=== PATIENT | male | born 1930 | race Caucasian/White ===

== ENCOUNTER 2017-04-03 14:46 | Emergency (ER) | payer MEDICARE, OTHER ==
--- NOTE | 2017-04-03 16:14 | ER Document Report ---
ED Medical Screen (RME) - General Chief Complaint: Abdominal Pain Stated Complaint: ABDOMINAL PAIN Time Seen by Provider: 04/03/17 16:13 Mode of Arrival: Ambulatory Information source: Patient Notes: 86 yo male with RLQ abdomen pain, sudden onset, vomiting relieves the pain, 3 episodes of this since yesterday. No groin or testicle pain. Hot this morning. Chronic diarrhea. No kidney hx. PMH: A FIB, gout,hyperlipedemia, no abdominal surgeries. No pain now, slightly hurt when touched RLQ. - Related Data Allergies/Adverse Reactions: No Known Allergies Allergy (Unverified 04/03/17 14:48) Physical Exam - Vital signs Vitals: Temp Pulse Resp BP Pulse Ox 97.7 F 68 20 143/81 H 97 04/03/17 14:57 04/03/17 14:57 04/03/17 14:57 04/03/17 14:57 04/03/17 14:57 Course - Vital Signs Vital signs: Temp Pulse Resp BP Pulse Ox 97.7 F 68 20 143/81 H 97 04/03/17 14:57 04/03/17 14:57 04/03/17 14:57 04/03/17 14:57 04/03/17 14:57
[2017-04-03 17:17] LABS: ABSOLUTE MONOCYTES (AUTO) 0.5 10^3/uL (0.1-1.4); ABSOLUTE NEUT (AUTO) 6.4 10^3/uL (1.7-8.2); BASOPHILS % (AUTO) 0.6 % (0-2); EOSINOPHILS % (AUTO) 0.1 % (0-6); HEMATOCRIT 41.5 % (37.9-51.0); LYMPHOCYTES % (AUTO) 22.1 % (13-45); MEAN CORPUSCULAR HEMOGLOBIN 31.3 pg (27.0-33.4); MEAN CORPUSCULAR HGB CONC 33.6 g/dL (32.0-36.0); MEAN CORPUSCULAR VOLUME 93 fl (80-97); MONOCYTES % (AUTO) 5.7 % (3-13); PLATELET COUNT 257 10^3/uL (150-450); RED BLOOD COUNT 4.47 10^6/uL (4.35-5.55); RED CELL DISTRIBUTION WIDTH 14.5 % (11.5-14.0); SEGMENTED NEUTROPHILS % (AUTO) 71.5 % (42-78); TOTAL CELLS COUNTED % (AUTO) 100 %
[2017-04-03 17:24] LABS: INTERNATIONAL RATION (INR) 1.07; PARTIAL THROMBOPLASTIN TIME 32.7 SEC (23.5-35.8); PROTHROMBIN TIME 14.6 SEC (11.4-15.4)
[2017-04-03 17:35] LABS: APPEARANCE,URINE CLOUDY; BILIRUBIN,URINE NEGATIVE (NEGATIVE); GLUCOSE, URINE NEGATIVE (NEGATIVE); KETONES,URINE NEGATIVE (NEGATIVE); LEUKOCYTE ESTERASE,URINE NEGATIVE (NEGATIVE); NITRITE,URINE NEGATIVE (NEGATIVE); PROTEIN,URINE 100 mg/dL (NEGATIVE); UROBILINOGEN,URINE NEGATIVE mg/dL (<2.0)
[2017-04-03 17:36] LABS: COLOR,URINE BROWN
--- NOTE | 2017-04-03 17:38 | RADIOLOGY REPORT (SQ) ---
EXAM DESCRIPTION: CT LTD RENAL STONE PROTOCOL ON COMPLETED DATE/TIME: 04/03/2017 5:20 pm REASON FOR STUDY: rlq pain, gross hematuria COMPARISON: None. TECHNIQUE: CT scan of the abdomen and pelvis performed without intravenous or oral contrast. Images reviewed with lung, soft tissue, and bone windows. Reconstructed coronal and sagittal MPR images revi ewed. All images stored on PACS. All CT scanners at this facility use dose modulation, iterative reconstruction, and/or weight based d osing when appropriate to reduce radiation dose to as low as reasonably achievable (ALARA). [facility]: Dose Right [facility]: CareDose [facility]: Dose Right [facility]: Teradose 4D [facility]: Smart [employer] RADIATION DOSE: CT Rad equipment meets quality standard of care and radiation dose reduction techniq ues were employed. CTDIvol: 8.8 mGy. DLP: 504 mGy-cm.mGy. LIMITATIONS: None. FINDINGS: LOWER CHEST: A pleural-based density is identified in the right lower hemithorax posterior ly measuring 1.6 x 1.2 cm in diameters which may only represent pleural and parenchymal scarring rivas gladis the possibility of a pleural base mass cannot be excluded. NON-CONTRASTED LIVER, SPLEEN, ADRENALS: Evaluation limited by lack of IV contrast. No identified sign ificant masses. There is some prominence of the adrenal glands bilaterally which are of relative low density which would suggest a benign etiology. Small adrenal calcification is identified on the lef t. PANCREAS: No masses. No peripancreatic inflammatory changes. GALLBLADDER: No identified stones by CT criteria. No inflammatory changes to suggest cholecystitis. RIGHT KIDNEY AND URETER: No suspicious masses. Assessment limited by lack of IV contrast. No renal calculi are identified. An obstructing 3.5 mm in diameter calculus is identified in the mid right ur eter best seen on image number 52 of the axial series 3. There is hydronephrosis of the right kidne y and fullness of the right ureter proximal to this level. LEFT KIDNEY AND URETER: No suspicious masses. Assessment limited by lack of IV contrast. And 1.3 cm in diameter relative low density area is identified in the left kidney with CT numbers most consisten t with a small cortical cyst. No significant calcifications. No hydronephrosis or hydroureter. AORTA AND RETROPERITONEUM: A small infrarenal abdominal aortic aneurysm is identified measuring 3.2 x 3.1 cm in diameters. No retroperitoneal masses or adenopathy. BOWEL AND PERITONEAL CAVITY: No obvious masses or inflammatory changes. No free fluid. APPENDIX: Normal. PELVIS, BLADDER, AND ABDOMINAL WALL:No abnormal masses. No free fluid. Bladder normal. BONES: Degenerative changes are identified in the lower lumbar spine with almost complete loss of the L4-L5 disc space height and associated osteophytic lipping OTHER: No other significant finding. IMPRESSION: Obstructing 3.5 mm in diameter calculus in the mid right ureter. Small 3.2 x 3.1 cm in diameter infrarenal abdominal aortic aneurysm. Other findings as noted above COMMENT: Quality ID # [id number]: Final reports with documentation of one or more dose reduction techniques (e.g., Automated exposure control, adjustment of the mA and/or kV according to patient size, use of iterative reconstruction technique) TECHNICAL DOCUMENTATION: JOB ID: [id number] [employer]- All Rights Reserved
[2017-04-03 17:43] LABS: ALANINE AMINOTRANSFERASE 33 U/L (21-72); ALBUMIN 4.5 g/dL (3.5-5.0); ALKALINE PHOSPHATASE 70 U/L (38-126); ANION GAP 12 (5-19); ASPARTATE AMINO TRANSFERASE 26 U/L (17-59); BILIRUBIN,DIRECT 0.2 mg/dL (0.0-0.4); BILIRUBIN,TOTAL 1.1 mg/dL (0.2-1.3); BLOOD UREA NITROGEN 18 mg/dL (7-20); CALCIUM 10.1 mg/dL (8.4-10.2); CARBON DIOXIDE 32 mmol/L (22-30); CHLORIDE 101 mmol/L (98-107); GLUCOSE 136 mg/dL (75-110); POTASSIUM 4.6 mmol/L (3.6-5.0); SODIUM 145.2 mmol/L (137-145); TOTAL PROTEIN 7.4 g/dL (6.3-8.2)
[2017-04-03] MEDS ORDERED: CEFTRIAXONE 1 GM/D5W RTU 50 ML IV ONE (18:17)
[2017-04-03] MEDS ORDERED: MORPHINE SULFATE 10 MG/ML INJ IV ONE (18:18)
[2017-04-03] MEDS ORDERED: ONDANSETRON 4 MG TAB.RAPDIS PO ONE (18:18)
[2017-04-03] MEDS ORDERED: CEFTRIAXONE SODIUM 1,000 MG in DEXTROSE 5%-WATER 50 ML IV ONE (19:30)
[2017-04-03] MEDS ORDERED: TAMSULOSIN HCL 0.4 MG CAP.SR.24H PO ONE (19:49)
[2017-04-03] MEDS ORDERED: KETOROLAC TROMETHAMINE INJ/PF 30 MG/1 ML SDV IV ONE (19:49)
--- NOTE | 2017-04-03 19:49 | ER Document Report ---
ED General - General Chief Complaint: Abdominal Pain Stated Complaint: ABDOMINAL PAIN Time Seen by Provider: 04/03/17 16:13 Mode of Arrival: Ambulatory - [facility] Patient complains to provider of: Abdominal pain Onset: Yesterday Onset/Duration: Sudden, Gone Quality of pain: Stabbing Severity: Severe Context: States last night around midnight he developed his right sharp unrelenting pain just above his right testicle area. He states he did have vomiting with it. He states he did fall asleep it did resolve for a little bit. He awoke today and the pain was back. Patient has never had this pain before. Associated symptoms: Nausea, Vomiting Exacerbated by: Denies Relieved by: Denies Similar symptoms previously: No Recently seen / treated by doctor: No - Related Data Allergies/Adverse Reactions: No Known Allergies Allergy (Unverified 04/03/17 14:48) Past Medical History - General Information source: Patient - Social History Smoking Status: Never Smoker Chew tobacco use (# tins/day): No Frequency of alcohol use: None Drug Abuse: None Lives with: Family Family History: Reviewed & Not Pertinent Patient has suicidal ideation: No Patient has homicidal ideation: No - Past Medical History Cardiac Medical History: Reports: Hx Heart Attack Pulmonary Medical History: Reports: None EENT Medical History: Reports: None Other: Patient is blind in his left eye. A few years ago he was working and the nail went into it. Neurological Medical History: Reports: None Endocrine Medical History: Reports: None Renal/ Medical History: Reports: None, Other - Hematuria this morning. Denies : Hx Kidney Stones, Hx Peritoneal Dialysis Malignancy Medical History: Reports None GI Medical History: Reports: None Musculoskeltal Medical History: Reports None Skin Medical History: Reports None Psychiatric Medical History: Reports: None Review of Systems - Review of Systems Constitutional: No symptoms reported EENT: No symptoms reported Cardiovascular: No symptoms reported Respiratory: No symptoms reported Gastrointestinal: Nausea, Vomiting Genitourinary: Hematuria Male Genitourinary: Testicular pain - On the right with the associated pain but has resolved now Musculoskeletal: No symptoms reported Skin: No symptoms reported Hematologic/Lymphatic: No symptoms reported Neurological/Psychological: No symptoms reported Physical Exam - Vital signs Vitals: Temp Pulse Resp BP Pulse Ox 97.7 F 68 20 143/81 H 97 04/03/17 14:57 04/03/17 14:57 04/03/17 14:57 04/03/17 14:57 04/03/17 14:57 Notes: PHYSICAL EXAMINATION: GENERAL: Well-appearing, well-nourished and in no acute distress. HEAD: Atraumatic, normocephalic. EYES: Pupils round reactive to light, left cornea are cloudy patient blind in that eye. extraocular movements intact, sclera anicteric, conjunctiva are normal. ENT: Nares patent, oropharynx clear without exudates. Moist mucous membranes. NECK: Normal range of motion, supple without lymphadenopathy LUNGS: Breath sounds clear to auscultation bilaterally and equal. No wheezes rales or rhonchi. HEART: Regular rate and rhythm without murmurs ABDOMEN: Soft, nontender, nondistended abdomen. No guarding, no rebound. No masses appreciated. Musculoskeletal: Normal range of motion, no pitting or edema. No cyanosis. NEUROLOGICAL: Cranial nerves grossly intact. Normal speech, normal gait. Normal sensory, motor exams PSYCH: Normal mood, normal affect. SKIN: Warm, Dry, normal turgor, no rashes or lesions noted. Course - Re-evaluation Re-evalutation: 04/03/17 19:54 I did go and talk to the patient regarding his kidney stone as well as the CT finding of a possible entity on his right base of his lung. He states that he knows that is there and his nursing informatics analyst has told him it could calcify. I did give him a copy of the CT of his chest that he can bring to his primary medical doctor Dr. Nuno. (he just switched doctor's) 04/03/17 20:09 Patient remained stable throughout his stay in the emergency department. I did discuss with him the discharge plan including [place] and Flomax. Patient did go home with a copy of the CAT scan of his chest and he is to follow-up with his new primary medical doctor Dr. Godinez to further evaluate that. Patient does state he sees a nursing informatics analyst and they are aware of this finding. Patient is to return to the emergency department if he has high fevers inability to urinate intractable pain or any other concerns. Patient left here in the care of his in stable condition. - Vital Signs Vital signs: Temp Pulse Resp BP Pulse Ox 97.6 F 66 14 145/85 H 98 04/03/17 19:43 04/03/17 19:43 04/03/17 19:43 04/03/17 19:43 04/03/17 19:43 - Laboratory Result Diagrams: 04/03/17 17:03 04/03/17 17:03 Laboratory results interpreted by me: 04/03/17 04/03/17 04/03/17 16:44 17:03 17:03 RDW 14.5 H Sodium 145.2 H Carbon Dioxide 32 H Glucose 136 H Urine Protein 100 H Urine Blood LARGE H Urine Ascorbic Acid 40 H - Diagnostic Test Radiology reviewed: Image reviewed, Reports reviewed Radiology results interpreted by me: 04/03/17 20:09 EXAM DESCRIPTION: CT LTD RENAL STONE PROTOCOL ON COMPLETED DATE/TIME: 04/03/2017 5:20 pm REASON FOR STUDY: rlq pain, gross hematuria COMPARISON: None. TECHNIQUE: CT scan of the abdomen and pelvis performed without intravenous or oral contrast. Images reviewed with lung, soft tissue, and bone windows. Reconstructed coronal and sagittal MPR images reviewed. All images stored on PACS. All CT scanners at this facility use dose modulation, iterative reconstruction, and/or weight based dosing when appropriate to reduce radiation dose to as low as reasonably achievable (ALARA). [facility]: Dose Right [facility]: CareDose [facility]: Dose Right [facility]: Teradose 4D [facility]: [employer] RADIATION DOSE: CT Rad equipment meets quality standard of care and radiation dose reduction techniques were employed. CTDIvol: 8.8 mGy. DLP: 504 mGy-cm.mGy. LIMITATIONS: None. FINDINGS: LOWER CHEST: A pleural-based density is identified in the right lower hemithorax posteriorly measuring 1.6 x 1.2 cm in diameters which may only represent pleural and parenchymal scarring however the possibility of a pleural base mass cannot be excluded. NON-CONTRASTED LIVER, SPLEEN, ADRENALS: Evaluation limited by lack of IV contrast. No identified significant masses. There is some prominence of the adrenal glands bilaterally which are of relative low density which would suggest a benign etiology. Small adrenal calcification is identified on the left. PANCREAS: No masses. No peripancreatic inflammatory changes. GALLBLADDER: No identified stones by CT criteria. No inflammatory changes to suggest cholecystitis. RIGHT KIDNEY AND URETER: No suspicious masses. Assessment limited by lack of IV contrast. No renal calculi are identified. An obstructing 3.5 mm in diameter calculus is identified in the mid right ureter best seen on image number 52 of the axial series 3. There is hydronephrosis of the right kidney and fullness of the right ureter proximal to this level. LEFT KIDNEY AND URETER: No suspicious masses. Assessment limited by lack of IV contrast. And 1.3 cm in diameter relative low density area is identified in the left kidney with CT numbers most consistent with a small cortical cyst. No significant calcifications. No hydronephrosis or hydroureter. AORTA AND RETROPERITONEUM: A small infrarenal abdominal aortic aneurysm is identified measuring 3.2 x 3.1 cm in diameters. No retroperitoneal masses or adenopathy. BOWEL AND PERITONEAL CAVITY: No obvious masses or inflammatory changes. No free fluid. APPENDIX: Normal. PELVIS, BLADDER, AND ABDOMINAL WALL:No abnormal masses. No free fluid. Bladder normal. BONES: Degenerative changes are identified in the lower lumbar spine with almost complete loss of the L4-L5 disc space height and associated osteophytic lipping OTHER: No other significant finding. IMPRESSION: Obstructing 3.5 mm in diameter calculus in the mid right ureter. Small 3.2 x 3.1 cm in diameter infrarenal abdominal aortic aneurysm. Other findings as noted above COMMENT: Quality ID # [id number]: Final reports with documentation of one or more dose reduction techniques (e.g., Automated exposure control, adjustment of the mA and/or kV according to patient size, use of iterative reconstruction technique) Discharge - Discharge Clinical Impression: Ureterolithiasis, Abnormal CT lung screening Condition: Stable Disposition: HOME, SELF-CARE Instructions: Kidney Stone ([facility]) Additional Instructions: Please follow-up with your primary medical doctor. There is a small area concerning your right lung that needs further evaluation. Primary medical doctor needs to order a CAT scan of your chest as an outpatient. Prescriptions: Hydrocodone/Acetaminophen [[place] 5-325 mg Tabs (6 Tab/ER Disp)] 6 tab PO Q4 #6 dspk Tamsulosin HCl [Flomax 0.4 mg Cap.sr] 0.4 mg PO DAILY #7 cap.sr.24h Referrals: MARVIN NGUYEN MD [NO LOCAL MD] - Follow up as needed
[2017-04-03 19:58] VITALS: BP 145/85
[2017-04-03] MEDS ORDERED: HYDROCODONE/ACETAMINOPHEN 5-325 MG (6 TAB/ER DISP) PO PRN ×2 (19:59)
== END 2017-04-03 20:25 | disposition home or self-care (01) ==
LOC: ER 14:46
DX: N20.1 Calculus of ureter (principal); R91.8 Other nonspecific abnormal finding of lung field; R10.9 Unspecified abdominal pain; N50.811 Right testicular pain; R11.10 Vomiting, unspecified
CPT/HCPCS: 99284; 96375; 96365; 36415; 87086; 83690; 85025; 85610; 85730; 80053; 81001; 76380; A9270 ×3; J1885; J2270; J0696; S0119

== ENCOUNTER 2017-04-05 15:28 | Emergency (ER) | payer MEDICARE, OTHER ==
[2017-04-05] MEDS ORDERED: ONDANSETRON 4 MG TAB.RAPDIS PO ONE ×2 (16:34→16:42)
[2017-04-05] MEDS ORDERED: ONDANSETRON HCL INJ/PF 4 MG/2 ML SDV IV ONE (16:42)
--- NOTE | 2017-04-05 16:43 | ER Document Report ---
ED General - General Chief Complaint: Flank Pain Stated Complaint: VOMITING Time Seen by Provider: 04/05/17 16:41 Mode of Arrival: Ambulatory Information source: Patient Notes: 86-year-old male who was diagnosed with recent kidney stone presents with complaints of nausea vomiting. I have greeted and performed a rapid initial assessment of this patient. A comprehensive ED assessment and evaluation of the patient, analysis of test results and completion of the medical decision making process will be conducted by additional ED providers. PHYSICAL EXAMINATION: GENERAL: Well-appearing, well-nourished and in no acute distress. HEAD: Atraumatic, normocephalic. EYES: Pupils equal round extraocular movements intact, conjunctiva are normal. ENT: Nares patent NECK: Normal range of motion LUNGS: No respiratory distress Musculoskeletal: Normal range of motion NEUROLOGICAL: Normal speech, normal gait. PSYCH: Normal mood, normal affect. SKIN: Warm, Dry, normal turgor, no rashes or lesions noted. TRAVEL OUTSIDE OF THE [place] 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 Denies: Hx Peritoneal Dialysis Physical Exam - Vital signs Vitals: Temp Pulse Resp BP Pulse Ox 98.1 F 57 L 16 162/83 H 95 04/05/17 16:23 04/05/17 16:23 04/05/17 16:23 04/05/17 16:23 04/05/17 16:23 Course - Vital Signs Vital signs: Temp Pulse Resp BP Pulse Ox 98.1 F 57 L 15 130/72 H 96 04/05/17 16:23 04/05/17 16:23 04/05/17 19:01 04/05/17 19:00 04/05/17 19:01 - Laboratory Result Diagrams: 04/05/17 17:12 04/05/17 17:12 Laboratory results interpreted by me: 01/04/05/17 04/05/17 17:12 17:12 19:23 WBC 12.8 H RDW 14.4 H Seg Neutrophils % 81.5 H Lymphocytes % 10.8 L Absolute Neutrophils 10.4 H BUN 26 H Creatinine 1.60 H Est GFR ( Amer) 50 L Est GFR (Non-Af Amer) 41 L Glucose 169 H Total Bilirubin 1.7 H Urine Protein 30 H Urine Glucose (UA) 50 H Urine Ketones TRACE H Urine Blood MODERATE H Urine Ascorbic Acid 40 H
[2017-04-05] MEDS ORDERED: KETOROLAC TROMETHAMINE INJ/PF 30 MG/1 ML SDV IV ONE (16:53)
[2017-04-05] MEDS ORDERED: NORMAL SALINE 1000 ML 1,000 ML IV ONE ×2 (17:14→19:40)
[2017-04-05 17:28] LABS: ABSOLUTE LYMPHOCYTES (AUTO) 1.4 10^3/uL (0.5-4.7); ABSOLUTE MONOCYTES (AUTO) 0.9 10^3/uL (0.1-1.4); ABSOLUTE NEUT (AUTO) 10.4 10^3/uL (1.7-8.2); BASOPHILS % (AUTO) 0.2 % (0-2); EOSINOPHILS % (AUTO) 0.1 % (0-6); HEMATOCRIT 41.2 % (37.9-51.0); HEMOGLOBIN 13.9 g/dL (13.5-17.0); LYMPHOCYTES % (AUTO) 10.8 % (13-45); MEAN CORPUSCULAR HEMOGLOBIN 31.3 pg (27.0-33.4); MEAN CORPUSCULAR HGB CONC 33.6 g/dL (32.0-36.0); MEAN CORPUSCULAR VOLUME 93 fl (80-97); MONOCYTES % (AUTO) 7.4 % (3-13); PLATELET COUNT 226 10^3/uL (150-450); RED BLOOD COUNT 4.43 10^6/uL (4.35-5.55); RED CELL DISTRIBUTION WIDTH 14.4 % (11.5-14.0); SEGMENTED NEUTROPHILS % (AUTO) 81.5 % (42-78); TOTAL CELLS COUNTED % (AUTO) 100 %; WHITE BLOOD COUNT 12.8 10^3/uL (4.0-10.5)
[2017-04-05 18:01] LABS: ALANINE AMINOTRANSFERASE 32 U/L (21-72); ALBUMIN 4.4 g/dL (3.5-5.0); ALKALINE PHOSPHATASE 68 U/L (38-126); ANION GAP 10 (5-19); ASPARTATE AMINO TRANSFERASE 27 U/L (17-59); BILIRUBIN,DIRECT 0.2 mg/dL (0.0-0.4); BILIRUBIN,TOTAL 1.7 mg/dL (0.2-1.3); BLOOD UREA NITROGEN 26 mg/dL (7-20); CALCIUM 10.2 mg/dL (8.4-10.2); CARBON DIOXIDE 29 mmol/L (22-30); CHLORIDE 99 mmol/L (98-107); GLUCOSE 169 mg/dL (75-110); LIPASE 56.8 U/L (23-300); POTASSIUM 4.3 mmol/L (3.6-5.0); SODIUM 138.3 mmol/L (137-145); TOTAL PROTEIN 7.5 g/dL (6.3-8.2)
[2017-04-05] MEDS ORDERED: MORPHINE SULFATE 10 MG/ML INJ IV PRN (18:52)
--- NOTE | 2017-04-05 19:43 | ER Document Report ---
ED General - General Chief Complaint: Flank Pain Stated Complaint: VOMITING Time Seen by Provider: 04/05/17 16:41 Notes: Patient is an 86-year-old male who was seen 2 days ago for right-sided nephrolithiasis who presents with persistent vomiting and ongoing flank pain since that time. The patient reports that his main concern is his ongoing vomiting and inability to tolerate oral intake secondary to the vomiting. He has been taking hydrocodone at home with improvement of his pain which he has described as intermittent, dull, aching pain to the right flank. Nothing improves or worsens the pain or vomiting. He has not followed up with urologist or primary care doctor yet. He denies any fever or constitutional symptoms. He presents again to the emergency department today due to the ongoing nature of his symptoms. TRAVEL OUTSIDE OF THE [place] 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 Denies: Hx Peritoneal Dialysis Review of Systems - Review of Systems Notes: Constitutional: Negative for fever. HENT: Negative for sore throat. Eyes: Negative for visual changes. Cardiovascular: Negative for chest pain. Respiratory: Negative for shortness of breath. Gastrointestinal: Positive for flank pain and vomiting Genitourinary: Negative for dysuria. Musculoskeletal: Negative for back pain. Skin: Negative for rash. Neurological: Negative for headaches, weakness or numbness. 10 point ROS negative except as marked above and in HPI. Physical Exam - Vital signs Vitals: Temp Pulse Resp BP Pulse Ox 98.1 F 57 L 16 162/83 H 95 04/05/17 16:23 04/05/17 16:23 04/05/17 16:23 04/05/17 16:23 04/05/17 16:23 Interpretation: Hypertensive Notes: PHYSICAL EXAMINATION: GENERAL: Well-appearing, well-nourished and in no acute distress. HEAD: Atraumatic, normocephalic. EYES: Pupils equal round and reactive to light, extraocular movements intact, sclera anicteric, conjunctiva are normal. ENT: nares patent, oropharynx clear without exudates. Dry mucous membranes. NECK: Normal range of motion, supple without lymphadenopathy LUNGS: Breath sounds clear to auscultation bilaterally and equal. No wheezes rales or rhonchi. HEART: Regular rate and rhythm without murmurs ABDOMEN: Soft, nontender, normoactive bowel sounds. No guarding, no rebound. No masses appreciated. EXTREMITIES: Normal range of motion, no pitting or edema. No cyanosis. NEUROLOGICAL: No focal neurological deficits. Moves all extremities spontaneously and on command. PSYCH: Normal mood, normal affect. SKIN: Warm, Dry, normal turgor, no rashes or lesions noted. Course - Re-evaluation Re-evalutation: 04/05/17 19:41 Patient presents with persistent vomiting as well as ongoing intermittent right flank pain in the setting of having a diagnosis of 3.5 mm obstructing right- sided kidney stone 2 days prior to today's visit. At that time also concerned the urinalysis did appear to be infected but a culture was sent and did not grow anything. The patient was not sent home on antibiotics at that time. He denies any fever or constitutional symptoms suggest an acute infected stone. His labs today do show an acute kidney injury likely secondary to persistent vomiting. The patient notes that he has had significant improvement of his generalized fatigue and lightheadedness after receiving 1 L of IV fluids and will receive a second liter of IV fluids now. Will also repeat a CT scan at this time to ensure that the stone is either moving or not causing worsening obstruction. Will also repeat the urinalysis to evaluate for any evidence of ongoing infection. If a remaining stone is found, will discuss with a urologist outside facility to establish outpatient follow-up. 04/05/17 21:[address] shows mild increased hydronephrosis but migration of the stone down to the distal ureter which is promising for patient to be able to pass the stone on his own. Patient has had resolution of his vomiting and pain here in the emergency department without any need for IV narcotics. He has received a total of 2 L of IV fluid. BUN/creatinine ratio 16.2 is consistent with a prerenal azotemia. Suspect this should improve after IV fluid administration antibiotics of asked the patient follow-up for repeat basic metabolic panel checked the next 3-5 days. He will also be sent home with a urine strainer so that he will know when the stone is passed. I have instructed him to follow-up with urology in the next 2-3 days. At this time will discharge with return precautions and follow-up recommendations. Verbal discharge instructions given a the bedside and opportunity for questions given. Medication warnings reviewed. Patient is in agreement with this plan and has verbalized understanding of return precautions and the need for primary care follow-up in the next 24-72 hours. - Vital Signs Vital signs: Temp Pulse Resp BP Pulse Ox 97.4 F 57 L 23 H 117/67 98 04/05/17 22:01 04/05/17 16:23 04/05/17 22:01 04/05/17 22:01 04/05/17 22:01 - Laboratory Result Diagrams: 04/05/17 17:12 04/05/17 17:12 Laboratory results interpreted by me: 04/05/17 04/05/17 04/05/17 17:12 17:12 19:23 WBC 12.8 H RDW 14.4 H Seg Neutrophils % 81.5 H Lymphocytes % 10.8 L Absolute Neutrophils 10.4 H BUN 26 H Creatinine 1.60 H Est GFR ( Amer) 50 L Est GFR (Non-Af Amer) 41 L Glucose 169 H Total Bilirubin 1.7 H Urine Protein 30 H Urine Glucose (UA) 50 H Urine Ketones TRACE H Urine Blood MODERATE H Urine Ascorbic Acid 40 H - Diagnostic Test Radiology reviewed: Reports reviewed Discharge - Discharge Clinical Impression: Ureterolithiasis, Prerenal azotemia, Persistent vomiting Condition: Good Disposition: HOME, SELF-CARE Additional Instructions: Your symptoms should improve over the course of the next one week. If you continue to have pain for greater than one week or your pain is not controlled with the pain medications that you have been sent home with you need to return to the emergency department. Please also return if you develop fever, persistent vomiting, or any other symptoms that are concerning to you. You are also been sent home with a medication called Flomax to help pass the stone. You 've been given Zofran to assist with nausea. Please follow-up with the urologist listed in her paperwork within the next 2-3 days. Strain your urine until you have passed the stone. Please follow-up with your primary doctor for recheck of your kidney function within the next 3-5 days. Referrals: MEET COLLINS II, MD [[facility]] - 04/09/17
[2017-04-05 19:59] LABS: APPEARANCE,URINE CLEAR; BILIRUBIN,URINE NEGATIVE (NEGATIVE); COLOR,URINE YELLOW; GLUCOSE, URINE 50 mg/dL (NEGATIVE); KETONES,URINE TRACE mg/dL (NEGATIVE); LEUKOCYTE ESTERASE,URINE NEGATIVE (NEGATIVE); NITRITE,URINE NEGATIVE (NEGATIVE); PROTEIN,URINE 30 mg/dL (NEGATIVE); URINE SPECIFIC GRAVITY 1.024; UROBILINOGEN,URINE NEGATIVE mg/dL (<2.0)
--- NOTE | 2017-04-05 20:41 | RADIOLOGY REPORT (SQ) ---
EXAM DESCRIPTION: CT ABD/PELVIS NO ORAL OR IV COMPLETED DATE/TIME: 04/05/2017 8:25 pm REASON FOR STUDY: ongoing pain, no stone passage COMPARISON: 04/03/2017 TECHNIQUE: CT scan of the abdomen and pelvis performed without intravenous or oral contrast. Images reviewed with lung, soft tissue, and bone windows. Reconstructed coronal and sagittal MPR images revi ewed. All images stored on PACS. All CT scanners at this facility use dose modulation, iterative reconstruction, and/or weight based d osing when appropriate to reduce radiation dose to as low as reasonably achievable (ALARA). [facility]: Dose Right [facility]: CareDose [facility]: Dose Right [facility]: Teradose 4D [facility]: [employer] RADIATION DOSE: CT Rad equipment meets quality standard of care and radiation dose reduction techniq ues were employed. CTDIvol: 10.3 mGy. DLP: 570 mGy-cm.mGy. LIMITATIONS: None. FINDINGS: LOWER CHEST: Rounded atelectasis/scarring right lung base. No new airspace opacities. NON-CONTRASTED LIVER, SPLEEN, ADRENALS: Evaluation limited by lack of IV contrast. No identified sign ificant masses. PANCREAS: No masses. No peripancreatic inflammatory changes. GALLBLADDER: Possible polyp within the gallbladder fundus. No inflammatory changes to suggest cholecy stitis. RIGHT KIDNEY AND URETER: No suspicious masses. Assessment limited by lack of IV contrast. Previous described 3.5 mm calculus is now located within the distal ureter. There has been slight interval in crease in mild to moderate hydronephrosis with perinephric stranding. No hydronephrosis or hydroure ter. LEFT KIDNEY AND URETER: No suspicious masses. Assessment limited by lack of IV contrast. No signifi cant calcifications. No hydronephrosis or hydroureter. AORTA AND RETROPERITONEUM: Stable infrarenal abdominal aortic aneurysm measuring 3.2 x 3.1 cm. No ac southern ute injury. No retroperitoneal masses or adenopathy. BOWEL AND PERITONEAL CAVITY: No obvious masses or inflammatory changes. No free fluid. APPENDIX: Normal. PELVIS, BLADDER, AND ABDOMINAL WALL:No abnormal masses. No free fluid. Bladder normal. BONES: No significant findings. OTHER: No other significant finding. IMPRESSION: SLIGHT INCREASE IN RIGHT-SIDED HYDRONEPHROSIS WITH PREVIOUS IDENTIFIED CALCULUS NO LOCAT ED WITHIN THE DISTAL URETER. QUESTION POLYP WITHIN THE FUNDUS OF THE GALLBLADDER. RECOMMEND FOLLOWUP OUTPATIENT ULTRASOUND. REMAINING FINDINGS UNCHANGED FROM 04/03/2017. COMMENT: Quality ID # [id number]: Final reports with documentation of one or more dose reduction techniques (e.g., Automated exposure control, adjustment of the mA and/or kV according to patient size, use of iterative reconstruction technique) TECHNICAL DOCUMENTATION: JOB ID: [id number] [employer]- All Rights Reserved
[2017-04-05] MEDS ORDERED: ONDANSETRON ODT 4 MG TAB (6 TAB/ER DISP) PO PRN (21:08)
[2017-04-05 22:17] VITALS: BP 117/67
== END 2017-04-05 22:18 | disposition home or self-care (01) ==
LOC: ER 15:28
DX: N20.1 Calculus of ureter (principal); R79.89 Other specified abnormal findings of blood chemistry; R11.10 Vomiting, unspecified; R10.9 Unspecified abdominal pain; I25.2 Old myocardial infarction; Z87.442 Personal history of urinary calculi; Z87.891 Personal history of nicotine dependence
CPT/HCPCS: 99284; 96361; 96374; 96375; 36415; 83690; 85025; 80053; 81001; 74176; A9270 ×2; J1885; J2270; J2405; J7030; S0119

== ENCOUNTER → 2018-01-18 | Outpatient (CLI) | payer MEDICARE ==
--- NOTE | 2018-01-18 11:30 | RADIOLOGY REPORT (SQ) ---
EXAM DESCRIPTION: KNEE LEFT 4 VIEWS COMPLETED DATE/TIME: 01/18/2018 10:50 am REASON FOR STUDY: INJURY OF LEFT KNEE;INJURY OF RT KNEE S89.92XA UNSPECIFIED INJURY OF LEFT LOWER L EG, INITIAL ENCOU COMPARISON: None. NUMBER OF VIEWS: Four views. TECHNIQUE: AP, lateral, and both oblique radiographic images acquired of the left knee. LIMITATIONS: None. FINDINGS: MINERALIZATION: Normal. BONES: No acute fracture or dislocation. No worrisome bone lesions. Medial joint space narrowing wi th small osteophytes. JOINT: No effusion. SOFT TISSUES: No soft tissue swelling. No radio-opaque foreign body. OTHER: No other significant finding. IMPRESSION: DEGENERATIVE CHANGES. NO ACUTE FINDINGS. TECHNICAL DOCUMENTATION: JOB ID: [id number] [employer]- All Rights Reserved Reading location - IP/workstation name: [email or web address]
--- NOTE | 2018-01-18 11:31 | RADIOLOGY REPORT (SQ) ---
EXAM DESCRIPTION: KNEE RIGHT 4 VIEWS COMPLETED DATE/TIME: 01/18/2018 10:50 am REASON FOR STUDY: INJURY OF LEFT KNEE;INJURY OF RT KNEE S89.92XA UNSPECIFIED INJURY OF LEFT LOWER L EG, INITIAL ENCOU COMPARISON: None. NUMBER OF VIEWS: Four views. TECHNIQUE: AP, lateral, and both oblique radiographic images acquired of the right knee. LIMITATIONS: None. FINDINGS: MINERALIZATION: Normal. BONES: No acute fracture or dislocation. No worrisome bone lesions. Joint space narrowing in the me dial compartment and patellofemoral compartment with small osteophytes. JOINT: No effusion. SOFT TISSUES: No soft tissue swelling. No radio-opaque foreign body. OTHER: No other significant finding. IMPRESSION: DEGENERATIVE CHANGES. NO ACUTE FINDINGS. TECHNICAL DOCUMENTATION: JOB ID: [id number] [email or web address] - [employer]- All Rights Reserved Reading location - IP/workstation name: [email or web address]
== END ==
LOC: OD 10:27
PROVIDERS: ATTEND Nurse Practitioner Family
DX: S89.92XA Unspecified injury of left lower leg, initial encounter (principal); X58.XXXA Exposure to other specified factors, initial encounter

== ENCOUNTER 2019-12-01 06:55 | Day surgery (SDC) | payer MEDICARE, OTHER ==
--- NOTE | 2019-11-28 16:59 | EKG REPORT ---
SEVERITY:- ABNORMAL ECG - ATRIAL FIBRILLATION RIGHT BUNDLE BRANCH BLOCK PROBABLE ANTEROSEPTAL INFARCT, OLD : Confirmed by: Yang Irvin MD 28-Nov-2019 16:58:50
[2019-12-01] MEDS ORDERED: PROPOFOL INJ 200 MG/20 ML VIAL IV ONE (07:56)
--- NOTE | 2019-12-01 09:56 | Operative Report ---
Operative Report DATE OF SURGERY: 12/01/19 Operative Report: The risk, benefits and alternatives of the procedure including the risk of bleeding, perforation requiring surgery have been explained to the patient in detail and informed consent has been obtained. Patient is placed in a left, lateral decubital position. Timeout was called. Propofol medication is administered. Rectal examination is done which did not reveal any masses, tears or fissures. An Olympus videoscope was introduced into the patient's rectum and it is carefully advanced all the way to the cecum. Cecum was identified by the usual anatomical landmarks including the ileocecal valve as well as the appendiceal office. And photodocumentation is obtained. Scope was then sequentially pulled back via the various segments of the colon including the ascending colon, hepatic flexure, transverse colon, splenic flexure, descending colon finally into the rectosigmoid portions of the colon. Retroflexion maneuver is performed. PREOPERATIVE DIAGNOSIS: Rectal bleeding, change of bowel habits. Recent C. difficile positive but last test was negative POSTOPERATIVE DIAGNOSIS: Mild proctitis status post biopsy. Random right colon biopsy rule out collagenous colitis. Diverticulosis. Internal hemorrhoids OPERATION: Colonoscopy with biopsy SURGEON: ZAIRA BARRIOS ANESTHESIA: LMAC TISSUE REMOVED OR ALTERED: As noted above. COMPLICATIONS: None. ESTIMATED BLOOD LOSS: None. INTRAOPERATIVE FINDINGS: As noted above. PROCEDURE: Patient tolerated the procedure well. No immediate postprocedure complications are noted. Patient is discharged in good condition. Discharge date 12/01/2019. Discharge diet: Regular. Discharge activity: Regular. 2 to 3-week follow-up to discuss findings. Patient is instructed to call the office or proceed to the emergency room should there be any further problems questions. Wait on the pathology.
[2019-12-01 10:55] VITALS: BP 117/65
== END 2019-12-01 10:30 | disposition home or self-care (01) ==
LOC: END 06:55
PROVIDERS: ATTEND Internal Medicine Gastroenterology
DX: K52.9 Noninfective gastroenteritis and colitis, unspecified (principal); K62.89 Other specified diseases of anus and rectum; K57.90 Diverticulosis of intestine, part unspecified, without perforation or abscess without bleeding; K64.8 Other hemorrhoids; I48.91 Unspecified atrial fibrillation; I10 Essential (primary) hypertension; R94.31 Abnormal electrocardiogram [ECG] [EKG]; E78.5 Hyperlipidemia, unspecified; M10.9 Gout, unspecified; J44.9 Chronic obstructive pulmonary disease, unspecified; I48.0 Paroxysmal atrial fibrillation; K21.9 Gastro-esophageal reflux disease without esophagitis; Z79.51 Long term (current) use of inhaled steroids; Z79.01 Long term (current) use of anticoagulants; Z79.899 Other long term (current) drug therapy; Z79.82 Long term (current) use of aspirin; Z20.828 Contact with and (suspected) exposure to other viral communicable diseases; Z88.8 Allergy status to other drugs, medicaments and biological substances
CPT/HCPCS: 45380; 93005; 88305 ×2; 93010; 00811; U0003; J2704; C9803; 811; 87635